=== PATIENT | female | born 2005 | race Caucasian/White ===

== ENCOUNTER 2025-05-23 15:52 | Emergency (ER) | payer BC ==
[2025-05-23] MEDS ORDERED: predniSONE 20 MG TAB ONE (18:49)
== END 2025-05-23 19:17 | disposition home or self-care (01) ==
LOC: CSHERS 15:52
DX: J18.9 Pneumonia, unspecified organism (principal)
CPT/HCPCS: 71046; 87081; 87426; 87430; J7512

== ENCOUNTER 2025-05-30 17:02 | Emergency (ER) | payer BC ==
[~2025-05-30 17:02] MED LIST: Iopamidol 300 61% 100 ML VIAL FS ONE
[2025-05-30 17:47] LABS: #Basophils Less than 0.03 10x3/uL (0.0-0.2); #Eosinophils Less than 0.03 10x3/uL (0.0-0.5); #Monocytes 1.47 10x3/uL (0.0-1.1); #Neutrophils 10.73 10x3/uL (1.5-8.4); %Basophils 0.1 % (0.0-2.0); %Eosinophils 0.1 % (0.0-6.0); %Lymphocytes 25.7 % (18.0-47.0); %Monocytes 8.9 % (0.0-10.0); %Neutrophils 64.8 % (40.0-75.0); Hematocrit 33.3 % (34.9-44.5); Hemoglobin 11.0 g/dL (12.0-15.5); Mean Corpuscular Hemoglobin 28.6 pg (27.0-33.0); Mean Corpuscular Volume 86.7 fL (81.6-98.3); Platelet Count 266 10x3/uL (150-450); Red Blood Cell (RBC) Count 3.84 10x6/uL (3.90-5.03); White Blood Cell (WBC) Count 16.55 10x3/uL (3.5-10.5)
[2025-05-30 17:56] LABS: BHCG - Serum Negative (NEGATIVE); Pregs Control Background? CLEAR/WHITE (CLR/WHITE); Pregs Control Bar Appear? YES (CONTROL BAR)
[2025-05-30 18:04] LABS: ALT (SGPT) 13 U/L (Less than 34); AST (SGOT) 13 U/L (11-34); Albumin 3.6 g/dL (3.1-4.5); Alkaline Phosphatase 51 U/L (40-100); Anion Gap 11 mmol/L (10-20); BUN (Urea Nitrogen) 12 mg/dL (8.4-21.0); Bilirubin, Total 0.2 mg/dL (0.3-1.2); Calc. Creatinine Clearance 0 mL/min (70-130); Calcium 8.4 mg/dL (7.8-10.44); Carbon Dioxide 25 mmol/L (22-29); Chloride 108 mmol/L (98-107); Globulin 3.1 g/dL (2.4-3.5); Glucose 87 mg/dL (70-105); Lipase 13 U/L (8-78); Potassium 3.5 mmol/L (3.5-5.1); Sodium 140 mmol/L (136-145)
[2025-05-30 18:22] LABS: Glucose, Urine (Dipstick) Normal (Negative); Leukocyte Negative (Negative); Protein, Urine (Dipstick) 30 mg/dl (Neg-Trace); Specific Gravity, Urine 1.010 (1.005-1.030)
[2025-05-30 18:35] LABS: Bacteria/HPF Rare-Few HPF (None Seen); CAUTI Indications for Culture Pelvic or flank pain; RBC/HPF 0-3 HPF (0-3); WBC/HPF 0-3 HPF (0-3)
[2025-05-30 18:36] LABS: Urine Culture Reflex No No
[2025-05-30] MEDS ORDERED: Dexamethasone 10 MG/ML VIAL ONE (18:58)
[2025-05-30] MEDS ORDERED: Amoxicillin/Potassium Clav 875 MG TAB ONE (18:59)
== END 2025-05-30 19:25 | disposition home or self-care (01) ==
LOC: CSHERS 17:02
DX: K52.9 Noninfective gastroenteritis and colitis, unspecified (principal)
CPT/HCPCS: 74177; 80053; 81001; 83605; 83690; 84703; 85025; 96374; J1100

== ENCOUNTER 2025-06-24 02:40 | Emergency (ER) | payer BC ==
[2025-06-24] MEDS ORDERED: Ketorolac Tromethamine 30 MG (1 mL) VIAL ONE (03:05)
== END 2025-06-24 03:23 | disposition home or self-care (01) ==
LOC: CSHERS 02:40
DX: S20.211A Contusion of right front wall of thorax, initial encounter (principal); X58.XXXA Exposure to other specified factors, initial encounter
CPT/HCPCS: 96372; 99283; J1885